=== PATIENT | male | born 1965 | race Two or more races ===

== ENCOUNTER → 2021-10-22 | Day surgery (SDC) | payer BC ==
[~2021-10-22] MED LIST: FENTANYL CITRATE/PF 100MCG/2 ML INJ ONE; GLEEVEC100 MG PO; MIDAZOLAM HCL 2 MG/2 ML VIAL ONE; PROPOFOL IV EMULSION 10 MG/ML 20 ML VIAL ONE
[2021-10-22 11:05] VITALS: BP 115/71
== END | disposition home or self-care (01) ==
LOC: OR 07:30 → EDBD 09:30
PROVIDERS: ATTEND Internal Medicine Gastroenterology
DX: K21.00 Gastro-esophageal reflux disease with esophagitis, without bleeding (principal); K31.7 Polyp of stomach and duodenum; K29.50 Unspecified chronic gastritis without bleeding; K27.9 Peptic ulcer, site unspecified, unspecified as acute or chronic, without hemorrhage or perforation; K44.9 Diaphragmatic hernia without obstruction or gangrene; C92.11 Chronic myeloid leukemia, BCR/ABL-positive, in remission; G47.33 Obstructive sleep apnea (adult) (pediatric); I49.3 Ventricular premature depolarization; E66.9 Obesity, unspecified; I10 Essential (primary) hypertension; E78.5 Hyperlipidemia, unspecified; Z01.810 Encounter for preprocedural cardiovascular examination; Z01.812 Encounter for preprocedural laboratory examination; Z20.822 Contact with and (suspected) exposure to COVID-19; Z79.899 Other long term (current) drug therapy; Z68.33 Body mass index [BMI] 33.0-33.9, adult
CPT/HCPCS: 0223U; 36415; 43239; 93005; J2250; J2704; J3010